=== PATIENT | female | born 1970 | race African-American/Black ===

== ENCOUNTER 2017-12-17 20:50 | Emergency (ER) | payer OTHER ==
[~2017-12-17] VITALS: Ht 152.4 cm; Wt 61.7 kg
[~2017-12-17 20:50] MED LIST: DIFLUCAN150 MG PO; FLAGYL500 MG PO; IBUPROFEN 600600 M1 PO
[2017-12-17] MEDS ORDERED: FLEXERIL PO (20:56)
[2017-12-17] MEDS ORDERED: VITAMIN D3400 UNIT (20:57)
[2017-12-17] MEDS ORDERED: BACTRIM DS TAB1 EACH PO (21:51)
== END 2017-12-17 21:50 | disposition home or self-care (01) ==
LOC: ER 20:50
DX: L02.31 Cutaneous abscess of buttock (principal); F17.210 Nicotine dependence, cigarettes, uncomplicated

== ENCOUNTER 2019-10-20 15:35 | Emergency (ER) | payer OTHER ==
[~2019-10-20 15:35] MED LIST changes: +BACTRIM DS TAB1 EACH PO; +FLEXERIL PO; +VITAMIN D3400 UNIT
[2019-10-20 15:36] VITALS: BP 130/93
== END 2019-10-20 17:52 | disposition left against medical advice (07) ==
LOC: ER 15:35
DX: M54.9 Dorsalgia, unspecified (principal)